=== PATIENT | male | born 1995 | race Caucasian/White ===

== ENCOUNTER 2022-12-25 14:31 | Emergency (ER) | payer MEDICAID, OTHER ==
[~2022-12-25] VITALS: Ht 182.9 cm; Wt 74.8 kg
[~2022-12-25 14:31] MED LIST: ALPR1TAB7 PO; METO-391 PO; ONDA-104 PO
[2022-12-25 14:32] VITALS: BP 144/84; PULSE 100; RESP 20
[2022-12-25] MEDS ORDERED: MIRT-118 PO (14:57)
[2022-12-25] MEDS ORDERED: MIRT7.5T11 PO (15:15)
== END 2022-12-25 15:24 | disposition home or self-care (01) ==
LOC: EDH 14:31
DX: Z76.0 Encounter for issue of repeat prescription (principal); Z79.899 Other long term (current) drug therapy; Z98.890 Other specified postprocedural states

== ENCOUNTER 2023-01-05 15:15 | Emergency (ER) | payer OTHER ==
[~2023-01-05 15:15] MED LIST changes: +MIRT-118 PO; +MIRT7.5T11 PO
== END 2023-01-05 16:57 | disposition home or self-care (01) ==
LOC: EDH 15:15
DX: R11.10 Vomiting, unspecified (principal); Z53.21 Procedure and treatment not carried out due to patient leaving prior to being seen by health care provider

== ENCOUNTER 2024-12-07 15:45 | Emergency (ER) | payer MEDICARE ==
[~2024-12-07] VITALS: Ht 185.4 cm; Wt 74.4 kg
[~2024-12-07 15:45] MED LIST changes: -MIRT-118 PO; +MIRT-147 PO
--- NOTE | 2024-12-07 16:54 | NUR ---
PT IS VERY ANXIOUS, RESTLESS. PTS FAMILY STATES THAT PT IS "A RUNNER". PER FAMILY PT IS LIKELY TO LEAVE AND WILL HAVE TO BE BROUGHT BACK.
--- NOTE | 2024-12-07 16:54 | ERN ---
ED Note History of Present Illness Stated Complaint: ANXIETY Chief Complaint: Anxiety/Panic Attack Time Seen by MD: 15:50 Time Seen by Midlevel: 15:51 Dictation: 29-year-old male presents to the emergency department due to report of feeling very anxious. Patient states that he used some methamphetamine earlier today for which he states that he uses on a daily basis. However, he states that he did smoke some marijuana and does not know whether or not this might be attributed to this sensation. Currently, he denies being suicidal or homicidal. Patient states that he just feels like he would be wants to jump out of his body. Currently, he denies having any chest pain, chest pressure or shortness of breath. Upon initial evaluation, the patient presents anxious looking. 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 Home Meds Active Scripts Mirtazapine (Mirtazapine) 7.5 Mg Tablet, 7.5 MG PO DAILYDINNER for 5 Days, #5 TAB Prov:DEN WONG MD 12/25/22 Reported Medications Mirtazapine (Remeron) 30 Mg Tablet, 30 MG PO HS, TAB 12/25/22 Ondansetron HCl (Ondansetron HCl) 4 Mg Tablet, 4 MG PO AD PRN for nausea, TAB 09/07/14 Alprazolam (Alprazolam) 1 Mg Tablet, 1 MG PO AD PRN for ANXIETY/AGITATION, TAB 09/07/14 Metoprolol Succinate (Metoprolol Succinate) 50 Mg Tab.er.24h, 50 MG PO DAILY, TAB 09/07/14 Past Medical History Past Medical History: Anxiety Additional Past Medical Hx: TACHYCARDIA Surgical History: None Surgical History Other: ABLATION HEART Social History: Negative RN Note Reviewed/Agreed w/PFSH: Yes Review of System Dictation Psych: Anxious. Initial Vital Sign VS Vital Signs Date Time Temp Pulse Resp B/P (MAP) Pulse Ox O2 Delivery O2 Flow Rate FiO2 12/07/24 15:49 97.9 108 18 128/83 98 Room Air 0 Physical Exam Dictation General: awake, alert, NAD Head/Face: Normocephalic, atraumatic Eyes: PERRL, EOMI ENT: Oral mucosa moist Neck: Trachea midline, supple Cardiovascular: RRR, no edema Respiratory: Symmetrical, non-labored Abdomen: Soft, non-tender, non-distended, no guarding. Skin: Warm, dry, good turgor, no rash MS/Extremity: Pulses equal, no cyanosis, neurovascular intact, FROM Neuro: COAx4, GCS 15, steady gait, Psych: Anxious, not suicidal Results (Laboratory/Radiology) EKG: (+) NSR EKG Comment: EKG done on 12/07/2024 at 1 6 2 6. Ventricular rate 93 beats per minute MO 163 MS QRS 103 MS QT 338 MS No STEMI. ED Course ED Course Orders Procedure Category Date Status Time 12 Lead Ekg Tracing- EKG 12/07/24 Logged Technical 15:57 Vital Signs Date Time Temp Pulse Resp B/P (MAP) Pulse Ox O2 Delivery O2 Flow Rate FiO2 12/07/24 15:49 97.9 108 18 128/83 98 Room Air 0 Medical Decision Making MDM MDM: Differential diagnosis: Anxiety reaction, substance abuse disorder. Rationale: Tests considered and ordered secondary to shared decision making include: Previous outside records reviewed: Old ER visits. Risk of complication and/or morbidity or mortality of patient management: None Medications-Per medication reconciliation Need for hospitalization: Patient does not meet criteria for hospitalization. Need for emergency major/minor surgery: No There are no social concerns with this patient. Prescription drug management Prescriptions will include symptomatic care Patient's prior external medical records from other ER visits were reviewed by me as indicated. Prior testing and results from previous visits were reviewed. Prior tests were taken into account with medical decision making and resource utilization, independent historian/historians were used to obtain complete medical history. I independently interpreted the test that were performed, results were reviewed by me and considered findings on radiology if ordered. Medical management and examination interpretation discussions were had by me with other qualified healthcare professionals as indicated for the patient's care. DX & DISP Disposition: Discharge Departure Impression: Primary Impression: Anxiety reaction Additional Impression: Substance use disorder Condition: Stable Referrals: BABAR REHMAN (PCP) Time of Disposition: 16:53 SKY ALTMAN Dec 07, 2024 16:54
[2024-12-07 17:00] VITALS: BP 106/66; PULSE 93; RESP 18; TEMP 97.9; O2SAT 100
--- NOTE | 2024-12-08 06:42 | EKG ---
[facility] Test Date: 2024-12-07 Test Time: 16:26:47 Pat Name: TC GRIFFIN Department: [facility] Room: Gender: M Pond Tender: [id number] : 1995 Requested By: SYK ALTMAN Order Number: [id number] Reading MD: Mario England Measurements Intervals [place] Rate: 93 P: 75 FL: 163 QRS: 65 QRSD: 103 T: 52 QT: 338 QTc: 421 Interpretive Statements Sinus rhythm Compared to ECG 10/19/2016 02:20:39 No significant changes Electronically Signed On 12-08-2024 19:15:57 CDT by Mario England Please click the below link to view image of tracing.
== END 2024-12-07 17:00 | disposition home or self-care (01) ==
LOC: EDH 15:45
DX: F41.1 Generalized anxiety disorder (principal); Z79.899 Other long term (current) drug therapy
CPT/HCPCS: 93005; 99283

== ENCOUNTER 2024-12-20 19:07 | Emergency (ER) | payer MEDICARE ==
[~2024-12-20] VITALS: Ht 185.4 cm; Wt 72.6 kg
--- NOTE | 2024-12-20 19:08 | NUR ---
UA CUP PROVIDED
[2024-12-20 19:38] VITALS: TEMP 97.7
[2024-12-20 19:39] LABS: ADD UA MICROSCOPIC YES; APPEARANCE,URINE CLOUDY (CLEAR); GLUCOSE, URINE (UA) NEGATIVE (NEGATIVE); LEUKOCYTE ESTERASE ,URINE NEGATIVE Leu/uL (NEGATIVE); NITRATE,URINE NEGATIVE (NEGATIVE); OCCULT BLOOD,URINE NEGATIVE (NEGATIVE)
[2024-12-20 19:46] LABS: IMMATURE GRANULOCYTE ABSOLUTE 0.01 K/uL (0-1); NUCLEATED RED BLOOD CELLS 0.0 % (0.0-0.19); PLATELET COUNT (AUTO) 237 K/uL (130-400); RED BLOOD CELL COUNT(AUTO) 5.22 MIL/uL (4.50-6.20); RED CELL DISTRIBUTION WIDTH 13.5 % (11.0-15.5); WHITE BLOOD COUNT (AUTO) 5.1 K/uL (4.8-10.8)
[2024-12-20 19:53] LABS: CREATININE 0.8 mg/dL (0.5-1.3); GLOMERULAR FILTR. RATE CALC 124.0 mL/min (>90); GLUCOSE,RANDOM 216.0 mg/dL (70-105); SODIUM SERUM 137.0 mmol/L (136-145); UREA NITROGEN, BLOOD 20.0 mg/dL (7-18)
[2024-12-20 19:59] LABS: CREATINE KINASE, TOTAL 96.0 U/L (21-232)
--- NOTE | 2024-12-20 20:10 | ERN ---
General Chief Complaint: Flank Pain Stated Complaint: RT FLANK PAIN Time Seen by MD: 19:13 Time Seen by Midlevel: 19:15 Source: patient History of Present Illness Initial Comments The patient is a 29-year-old male presenting to the emergency department for evaluation of right flank pain that has been ongoing for over one week. The patient has already been seen multiple times for the same complaint once in our facility and multiple times and other nearby ER facilities. He states the pain is constant and does not radiate anywhere. Denies any direct injury to the area. Denies any history of kidney stones. Allergies: Coded Allergies: No Known Allergies (Unverified Allergy, Unknown, 09/07/14) Home Meds Active Scripts Mirtazapine (Mirtazapine) 7.5 Mg Tablet, 7.5 MG PO DAILYDINNER for 5 Days, #5 TAB Prov:DEN WONG MD 12/25/22 Reported Medications Mirtazapine (Remeron) 30 Mg Tablet, 30 MG PO HS, TAB 12/25/22 Ondansetron HCl (Ondansetron HCl) 4 Mg Tablet, 4 MG PO AD PRN for nausea, TAB 09/07/14 Alprazolam (Alprazolam) 1 Mg Tablet, 1 MG PO AD PRN for ANXIETY/AGITATION, TAB 09/07/14 Metoprolol Succinate (Metoprolol Succinate) 50 Mg Tab.er.24h, 50 MG PO DAILY, TAB 09/07/14 Past Medical History Past Medical History: Anxiety, Other Medical History Other: TACHYCARDIA, POTS, " DRUG SEEKING BEHAVIOR" " SI" Past Surgical History: Other Surgical History Other: ABLATION HEART Social History Social History: Negative ROS Dictation CONSTITUTIONAL: Negative except for HPI HEAD/FACE: Negative except for HPI EENT: Negative except for HPI RESPIRATORY: Negative except for HPI GASTROINTESTINAL/ABDOMINAL: Negative except for HPI GENITOURINARY: Negative except for HPI MUSCULOSKELETAL: Negative except for HPI INTEGUMENTARY: Negative except for HPI NEUROLOGICAL/PSYCH: Negative except for HPI HEMATOLOGIC/LYMPHATIC: Negative except for HPI All Systems Negative, Except as noted above. 13 point review of systems assessed and all negative except for above. Physical Exam Physical Exam Dictation Vital Signs reviewed General Appearance: Alert, oriented x 3, no acute distress, well developed, nourished. Head and Face: non-traumatic. Eyes: PERRL, pink conjunctivas, eyelid no trauma, anterior chamber with arcus senilis. Ears: Pinnas intact and no signs of trauma or erythema ear canals clear and no discharge TM no erythema Nose: No discharge, no bleeding. Oropharynx: Mouth normal, tongue pink, pharynx clear,no erythema, tonsils no exudates, no abscesses noted, mucous membrane moist Neck: Supple, non-tender, no thyromegaly, no masses, no JVD, no bruits Breast:Deferred Chest:No tenderness, no crepitus, no paradoxical movement, no retractions Lungs:Clear, well-ventilated, symmetric, no rales, no wheezing, no rhonchi, no stridor, good breath sounds bilaterally Heart: Regular rate, regular rhythm, no murmur, no gallops Vascular: no peripheral edema, Abdomen: Soft, positive bowel sounds, nondistended, no guarding, nontender, no rebound, no masses no hepatomegaly, no splenomegaly, no Escobar's sign, no hernias. Rectal: Deferred Genital: Deferred Neurological: Normal speech, motor function intact, sensory function intact Musculoskeletal: Neck nontender, full range of motion, back nontender, full r tahir of motion, Extremities: nontender, full range of motion Skin: Color pink, dry, no turgor, no rash, no lacerations, no abrasions, no contusions. Lymphatic: Deferred Results Laboratory and Microbiology Lab and Micro Result Laboratory Tests Test 12/20/24 19:14 12/20/24 19:40 Urine Color YELLOW (YELLOW) Urine Appearance CLOUDY (CLEAR) H Urine pH 6.0 (5.0-8.0) Urine Specific [place] 1.030 (1.001-1.031) Urine Protein 50 mg/dL (NEGATIVE) H Urine Glucose (UA) NEGATIVE mg/dL (NEGATIVE) Urine Ketones 60 mg/dL (NEGATIVE) H Urine Occult Blood NEGATIVE (NEGATIVE) Urine Nitrate NEGATIVE (NEGATIVE) Urine Bilirubin NEGATIVE mg/dL (NEGATIVE) Urine Urobilinogen 0.2 mg/dL (0.2-1.0) Urine Leukocyte Esterase NEGATIVE Xander/uL Urine RBC 2-5 /HPF (0-1) H Urine WBC 6-10 /HPF (0-1) H Urine Bacteria None /HPF (None Seen) White Blood Count 5.1 K/uL (4.8-10.8) Red Blood Count 5.22 MIL/uL (4.50-6.20) Hemoglobin 15.2 g/dL (14.0-18.0) Hematocrit 44.9 % (42-54) Mean Corpuscular Volume 86.0 fL (79-99) Mean Corpuscular Hemoglobin 29.1 pg (27.0-33.0) Mean Corpuscular Hemoglobin Concent 33.9 g/dL (32.0-36.0) Red Cell Distribution Width 13.5 % (11.0-15.5) Platelet Count 237 K/uL (130-400) Mean Platelet Volume 9.8 fL (7.5-10.5) Immature Granulocyte % (Auto) 0.2 % (0-1) Neutrophils (%) (Auto) 62.7 % (40.0-77.0) Lymphocytes (%) (Auto) 28.8 % (21.0-51.0) Monocytes (%) (Auto) 5.9 % (3.0-13.0) Eosinophils (%) (Auto) 1.8 % (0.0-8.0) Basophils (%) (Auto) 0.6 % (0.0-5.0) Neutrophils # (Auto) 3.2 K/uL (1.8-7.7) Lymphocytes # (Auto) 1.5 K/uL (1.0-4.8) Monocytes # (Auto) 0.3 K/uL (0.1-1.0) Eosinophils # (Auto) 0.09 K/uL (0.00-0.70) Basophils # (Auto) 0.03 K/uL (0.00-0.20) Absolute Immature Granulocyte (auto 0.01 K/uL (0-1) Nucleated Red Blood Cells 0.0 % (0.0-0.19) Sodium Level 137 mmol/L (136-145) Potassium Level 3.6 mmol/L (3.5-5.1) Chloride Level 100 mmol/L (101-111) L Carbon Dioxide Level 33 mmol/L (21-32) H Blood Urea Nitrogen 20 mg/dL (7-18) H Creatinine 0.8 mg/dL (0.5-1.3) Glomerular Filtration Rate Calc 124 mL/min (>90) Random Glucose 216 mg/dL (70-105) H Total Calcium 8.6 mg/dL (8.5-10.1) Total Creatine Kinase 96 U/L (21-232) Labs Reviewed?: Yes MDM MDM: Differential diagnosis: Ureter stone, pyelonephritis, urinary tract infection There are no social concerns with this patient. Prescription drug management Prescriptions will include: None Medical management and examination interpretation discussions were had by me with other qualified healthcare professionals as indicated for the patient's care. ED Course Orders Procedure Category Date Status Time Cbc With Differential LAB 12/20/24 Complete 19:19 Basic Metabolic Panel LAB 12/20/24 Complete 19:19 Urinalysis Profile LAB 12/20/24 Complete 19:19 Creatine Kinase, Total LAB 12/20/24 Complete 19:19 Us Renal Sonogram US 12/20/24 Resulted 19:19 Culture Urine CATALINA 12/20/24 In Process 19:44 Vital Signs Date Time Temp Pulse Resp B/P (MAP) Pulse Ox O2 Delivery O2 Flow Rate FiO2 12/20/24 19:38 97.7 99 22 114/67 97 Room Air* 0 21 12/20/24 19:08 98.1 105 20 115/67 99 Room Air DX & DISP Disposition: Discharge Departure Impression: Primary Impression: Right flank pain Condition: Stable Additional Instructions: Your blood work today is stable. Your urinalysis does not show any evidence of infection. Your ultrasound does not show any abnormalities. There was no evidence of a kidney stone or urinary tract infection. There was also no evidence of a kidney infection. Your pain may be related to musculoskeletal pain. You may take Tylenol and Motrin as needed for pain. You need to follow up with your primary care doctor in 2-3 days for repeat evaluation. Referrals: BABAR REHMAN (PCP) I have reviewed the case, and I agree with, Diagnosis and Plan I performed the substantive portion of the visit. I have reviewed and personally made and approve the management plan that is documented in the note by myself or the LINDY. I acknowledge for responsibility for the patient's management plan. ARNOLDO NASSAR Dec 20, 2024 20:10
--- NOTE | 2024-12-20 21:43 | HMCIMG ---
EXAM: US Retroperitoneum, Renal. CLINICAL HISTORY: Patient presents with flank pain; rule out ureteral stone. TECHNIQUE: Real-time ultrasound of the retroperitoneum with image documentation. COMPARISON: None provided. FINDINGS: RIGHT KIDNEY: The right kidney measures 9.6 x 4.6 x 3.4 cm. Normal in contour. No renal mass or calculus. No hydronephrosis. LEFT KIDNEY: The left kidney measures 9.4 x 4.4 x 2.8 cm. Normal in contour. No renal mass or calculus. No hydronephrosis. BLADDER: The urinary bladder wall measures approximately 2 mm in thickness. Unremarkable as visualized. PROSTATE: The prostate measures approximately 18.2 cc (2.78 x 3.14 x 4.02 cm). IMPRESSION: No evidence of hydronephrosis or renal calculus. Urinary bladder wall thickness within normal limits. /Eugenio
[2024-12-20 22:00] VITALS: BP 122/73; PULSE 83; RESP 20; O2SAT 97
== END 2024-12-20 22:45 | disposition home or self-care (01) ==
LOC: EDH 19:07
DX: R10.9 Unspecified abdominal pain (principal); F41.9 Anxiety disorder, unspecified; Z79.899 Other long term (current) drug therapy
CPT/HCPCS: 36415; 76770; 80048; 81001; 82550; 85025; 87086; 99284